=== PATIENT | male | born 1965 | race African-American/Black ===

== ENCOUNTER 2018-02-15 04:15 | Emergency (ER) | payer SELFPAY ==
[2018-02-15 04:17] VITALS: BP 177/90; PULSE 97; RESP 16; TEMP 98.6; O2SAT 99
[2018-02-15] MEDS ORDERED: ASPI-183 PO (04:38)
--- NOTE | 2018-02-15 04:41 | PD ---
HPI Chief Complaint: ENT Complaint Time Seen by Provider: 04:35 Travel History International Travel<30 days: No Contact w/Intl Traveler<30days: No Traveled to known affect area: No History of Present Illness HPI 52-year-old black male presents emergency department with concern of possible bug or cerumen impaction in his right ear. He states that he has having difficulty hearing out of his ear. He denies any significant pain. He has not been sick recently. Symptoms are mild. No alleviating factors. No exacerbating factor. PFSH Past Medical History Hx Anticoagulant Therapy: Yes Cerebrovascular Accident: Yes Hypertension: Yes Immunizations Current: Yes Tetanus Vaccination: Unknown Influenza Vaccination: No Social History Alcohol Use: Yes (occ) Tobacco Use: No Substance Use: No Allergies-Medications (Allergen,Severity, Reaction): Coded Allergies: No Known Allergies (Unverified , 02/15/18) Reported Meds & Prescriptions Reported Meds & Active Scripts Active No Active Prescriptions or Reported Medications Review of Systems General / Constitutional: No: Fever Eyes: No: Visual changes HENT: Positive: Earache, No: Headaches, Sore Throat, Congestion Cardiovascular: No: Chest Pain or Discomfort Respiratory: No: Shortness of Breath Gastrointestinal: No: Abdominal Pain Genitourinary: No: Dysuria Musculoskeletal: No: Pain Skin: No Rash Neurologic: No: Weakness Psychiatric: No: Depression Endocrine: No: Polydipsia Hematologic/Lymphatic: No: Easy Bruising Physical Exam Narrative GENERAL: Well-developed, well-nourished in no acute distress. Nontoxic appearing. HEAD: Normocephalic, atraumatic. EYES: Pupils equal round and reactive. Extraocular motions intact. No scleral icterus. No injection or drainage. ENT: The TMs clear without erythema. The left external auditory canals clear. The right ear canal has cerumen impaction. Nose: clear . Posterior pharynx is pink and moist. No tonsillar edema or exudate. Uvula midline. Airway patent. NECK: Trachea midline.Supple, nontender, moves head freely. No central bony tenderness or spasm. CARDIOVASCULAR: Regular rate and rhythm without murmurs, gallops, or rubs. RESPIRATORY: Clear to auscultation. Breath sounds equal bilaterally. No wheezes , rales, or rhonchi. GASTROINTESTINAL: Abdomen soft, non-tender, nondistended. No hepato-splenomegaly , or palpable masses. No guarding. EXTREMITIES: No clubbing, cyanosis, or edema. No joint tenderness, effusion, or edema noted. BACK: Nontender without deformity or crepitance. No flank tenderness. Data Data Last Documented VS Vital Signs Date Time Temp Pulse Resp B/P (MAP) Pulse Ox O2 Delivery O2 Flow Rate FiO2 02/15/18 04:17 98.6 97 16 177/90 (119) 99 MDM Medical Decision Making Medical Screen Exam Complete: Yes Emergency Medical Condition: Yes Medical Record Reviewed: Yes Differential Diagnosis Differential diagnosis: Foreign body, cerumen impaction, otitis media Narrative Course The patient's right ear is irrigated by the nursing staff. The team is intact after irrigation. This is cerumen impaction Diagnosis Primary Impression: Right ear impacted cerumen Patient Instructions: General Instructions Additional Instructions: Rest. Mineral oil 3-4 drops in each ear every night for the next week. Follow-up the medical doctor in 1 week. Return to the ER if any problems. Med/Other Pt SpecificInfo: No Meds Exist/No RX given Scripts No Active Prescriptions or Reported Meds Disposition: 01 DISCHARGE HOME Condition: Stable Sj Suero February 15, 2018 04:41
== END 2018-02-15 05:50 | disposition home or self-care (01) ==
LOC: NEPD 04:15
DX: H61.21 Impacted cerumen, right ear (principal)
CPT/HCPCS: 99282